=== PATIENT | female | born 1985 | race American Indian/Alaskan Native ===

== ENCOUNTER 2019-05-17 14:03 | Outpatient (CLI) | payer OTHER ==
--- NOTE | 2019-05-17 15:28 | Mammography Report ---
BILATERAL DIGITAL DIAGNOSTIC MAMMOGRAM WITH CAD 05/17/2019 LEFT LIMITED BREAST ULTRASOUND INDICATION: Status post bilateral reduction mammoplasty and left breast fat transfer. LT BREAST LUMP TECHNIQUE: Digital bilateral mammographic imaging was performed. This examination was interpreted wi th the benefit of Computer-Aided Detection (CAD) analysis. COMPARISON: None. FINDINGS: Breast Density: The breasts are heterogeneously dense, which may obscure small masses. MAMMOGRAPHIC FINDINGS: There is no evidence of dominant mass, suspicious calcifications or architectu ral distortion in either breast. Several prominent fat density masses within smooth dunn are identif ied near a palpable marker in the lower left breast at 6:00. ULTRASOUND FINDINGS: Targeted ultrasound evaluation was performed of the area of interest. Ultrasou nd of the left breast demonstrated 2 anechoic cyst at 5:00 1.5 cm from the nipple measuring 15 x 10 x 12 mm and 8 x 7 x 8 mm. No solid mass or suspicious shadowing. IMPRESSION: Benign palpable cysts at 5:00 left breast. I suspect that these are benign oil cysts rela adrienne to the fat transfer procedure. Follow up recommendation: Unless otherwise clinically indicated, recommend patient return to routine screening mammography at age 40. BI-RADS Category 2: Benign. A "normal" or negative report should not discourage follow up or biopsy of a clinically significant f inding. A written summary of these findings will be mailed to the patient. The patient will be entered into a mammography reporting system which will generate a reminder letter for the patient's next appointmen t at the appropriate interval. According to the [employer], yearly mammograms are recommended starting at age 40 and continuing as long as a woman is in good health. Breast MRI is recommended for women with an coleman roximately 20-25% or greater lifetime risk of breast cancer, including women with a strong family his tory of breast or ovarian cancer and women who have been treated for Hodgkin's disease. Signer Name: Hemal Humphreys MD Signed: 05/17/2019 3:24 PM Workstation Name: [id number]
== END 2019-05-17 14:04 | disposition home or self-care (01) ==
LOC: SPVWC 14:03
PROVIDERS: ATTEND Obstetrics & Gynecology
DX: N60.02 Solitary cyst of left breast (principal); N63.42 Unspecified lump in left breast, subareolar
CPT/HCPCS: 77066